=== PATIENT | female | born 1980 | race African-American/Black ===

== ENCOUNTER 2017-02-12 02:29 | Emergency (ER) ==
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
[2017-02-12] MEDS: ROCEPHIN IM STA (02:49)
[2017-02-12] MEDS: LIDOCAINE 1 % AMP 5 ML (SUTURES) IM STA (02:49)
[2017-02-12 02:52] VITALS: BP 145/95; TEMP 97.2; BMI 22.4
== END 2017-02-12 03:10 | disposition home or self-care (01) ==
LOC: ED 02:29
DX: Z20.2 Contact with and (suspected) exposure to infections with a predominantly sexual mode of transmission (principal)
CPT/HCPCS: 96372; 99282

== ENCOUNTER 2017-07-21 01:35 | Emergency (ER) ==
[2017-07-21 02:00] VITALS: BP 160/103; TEMP 98.1; BMI 23.1
[2017-07-21] MEDS: MORPHINE 2 MG/ML SYRINGE IVP STA (02:40)
[2017-07-21] MEDS: TORADOL IM STA (02:41)
[2017-07-21] MEDS: ZOFRAN 4 MG/2 ML IM STA (02:46)
[2017-07-21] MEDS: MORPHINE 2 MG/ML SYRINGE IM STA (02:47)
--- NOTE | 2017-07-21 03:16 | CT ---
Exam: CT of the abdomen and pelvis without contrast History: Pelvic pain and bleeding Technique: [address] of the abdomen and pelvis without intravascular contrast FINDINGS: The lung bases are clear. No significant liver abnormality. The adrenals, pancreas and spl een are unremarkable. The stomach and hiatus are unremarkable.The gallbladder appears normal. Kidneys and proximal collecting system are unremarkable. The appendix is not seen with confidence. Bowel loo ps demonstrate normal caliber. No inflamatory change seen in the mesentery or retroperitoneum. Vascul ar structures appear normal by noncontrast CT. Pelvic genitourinary structures appear normal. Pelvic bowel loops are unremarkable. No inflammatory c hange in the pelvic fat. No acute abnormality of the abdominal or pelvic skeleton. Impression: 1. No inflammatory process, bowel or urinary obstruction is seen. No acute findings of the abdomen or pelvis.
--- NOTE | 2017-07-21 03:49 | ED.PDOC ---
General ED Provider: Dr. JANAE REA-ER Chief Complaint: Vaginal Bleeding Stated Complaint: mahamed been bleeding Time Seen by Physician: 01:40 Mode of Arrival: Walk-In Information Source: Patient Exam Limitations: No limitations Primary Care Provider: JANAE REA Nursing and Triage Documentation Reviewed and Agree: Yes Reviewed sepsis parameters & appropriate labs ordered?: Yes System Inflammatory Response Syndrome: Not Applicable Sepsis Protocol: For patient's 13 years and over: Temp is 96.8 and below OR 101 and greater Pulse >90 BPM Resp >20/minute Acutely Altered Mental Status Are patient's symptoms suggestive of a new infection, such as: -Pneumonia -Skin, Soft Tissue -Endocarditis -UTI -Bone, Joint Infection -Implantable Device -Acute Abdominal Infection -Wound Infection -Meningitis -Blood Stream Catheter Infection -Unknown MEDICAL SAFETY DIRECTOR Complaint Exam - Vaginal Bleeding Complaint/Exam Onset/Duration: 2mos Symptoms Are: Still present Timing: Constant Initial Severity: Mild Current Severity: Moderate Character: Reports: Bright red Aggravating: Reports: None Alleviating: Reports: None Associated Signs and Symptoms: Reports: Cramping. Denies: Dizziness, Lightheadedness, Pale, UTI symptoms Patient Rh Status: Unknown Related Surgical History: Reports: None Abdominal Findings: Present: None Differential Diagnoses: DUB Review of Systems - Review Of Systems Constitutional: Reports: No symptoms Eyes: Reports: No symptoms Ears, Nose, Mouth, Throat: Reports: No symptoms Respiratory: Reports: No symptoms Cardiac: Reports: No symptoms GI: Reports: No symptoms : Reports: No symptoms Musculoskeletal: Reports: No symptoms Skin: Reports: No symptoms Neurological: Reports: No symptoms Endocrine: Reports: No symptoms Hematologic/Lymphatic: Reports: Blood clots All Other Systems: Reviewed and Negative Past Medical History - Past Medical History Previously Healthy: Yes Endocrine: Reports: None Cardiovascular: Reports: None Respiratory: Reports: None Hematological: Reports: None Gastrointestinal: Reports: None Genitourinary: Reports: None Neuro/Psych: Reports: None Musculoskeletal: Reports: None Cancer: Reports: None Last Menstrual Period: now - Surgical History General Surgical History: Reports: Unknown - Family History Family History: Reports: Unknown - Social History Smoking Status: Never smoker Hx Substance Use: No Alcohol Screening: None Lives: With family - Immunizations Tetanus Shot up to Date: Yes Physical Exam - Physical Exam Appearance: Well-appearing, No pain distress, Well-nourished Pain Distress: Mild Eyes: BRIAN ENT: Ears normal, Nose normal, Oropharynx normal Neck: Supple Respiratory: Airway patent, Breath sounds clear, Breath sounds equal, Respirations nonlabored Cardiovascular: RRR, Pulses normal, No rub, No murmur GI/: Soft, Nontender, No masses, Bowel sounds normal, No Organomegaly Musculoskeletal: Normal strength, ROM intact, No edema, No calf tenderness Skin: Warm, Dry, Normal color Neurological: Sensation intact, Motor intact, Reflexes intact, Cranial nerves intact, Alert, Oriented Psychiatric: Affect appropriate, Mood appropriate, Anxious Interpretation - Radiology Interpretation Radiology Interpretation By: Radiologist Radiology Results: Negative Exam Interpreted: CT Scan Critical Care Note - Critical Care Note Total Time (mins): 0 Course - Course Hematology/Chemistry: 07/21/17 02:05 07/21/17 02:05 Orders, Labs, Meds: Lab Review 07/21/17 07/21/17 07/21/17 02:00 02:05 02:05 WBC 10.49 H RBC 4.04 L Hgb 11.8 L Hct 34.5 L MCV 85.4 MCH 29.2 MCHC 34.2 RDW Coeff of Jennifer 13.3 Plt Count 466 H Immature Gran % (Auto) 0.3 Neut % (Auto) 64.5 Lymph % (Auto) 28.6 Baxter % (Auto) 5.3 Eos % (Auto) 1.0 Baso % (Auto) 0.3 Immature Gran # (Auto) 0.0 Neut # 6.8 Lymph # 3.0 Baxter # 0.6 Eos # 0.1 Baso # 0.0 Sodium 138 Potassium 3.6 Chloride 104 Carbon Dioxide 26 Anion Gap 11.6 BUN 7 Creatinine 0.75 Estimated GFR (MDRD) 106.00 BUN/Creatinine Ratio 9.33 Glucose 92 Calcium 9.5 Total Bilirubin 0.3 AST 19 ALT 22 Alkaline Phosphatase 67 Total Protein 7.7 Albumin 3.7 Globulin 4.0 Albumin/Globulin Ratio 0.93 Amylase 42 Lipase 10 Serum , Qual Urine Color Red Urine Clarity Clear Urine pH >=9.0 Ur Specific Hodges <=1.005 Urine Protein 3+ Urine Glucose (UA) Trace Urine Ketones 3+ Urine Blood 3+ Urine Nitrite Positive Urine Bilirubin 3+ Urine Urobilinogen >=8.0 Ur Leukocyte Esterase 3+ Urine Microscopic RBC Tntc Urine Microscopic WBC 10-20 Ur Squamous Epith Cells 2-5 07/21/17 02:05 WBC RBC Hgb Hct MCV MCH MCHC RDW Coeff of Jennifer Plt Count Immature Gran % (Auto) Neut % (Auto) Lymph % (Auto) Baxter % (Auto) Eos % (Auto) Baso % (Auto) Immature Gran # (Auto) Neut # Lymph # Baxter # Eos # Baso # Sodium Potassium Chloride Carbon Dioxide Anion Gap BUN Creatinine Estimated GFR (MDRD) BUN/Creatinine Ratio Glucose Calcium Total Bilirubin AST ALT Alkaline Phosphatase Total Protein Albumin Globulin Albumin/Globulin Ratio Amylase Lipase Serum , Qual Negative Urine Color Urine Clarity Urine pH Ur Specific Hodges Urine Protein Urine Glucose (UA) Urine Ketones Urine Blood Urine Nitrite Urine Bilirubin Urine Urobilinogen Ur Leukocyte Esterase Urine Microscopic RBC Urine Microscopic WBC Ur Squamous Epith Cells Orders Category Date Time Status AMYLASE Stat LAB 07/21/17 02:05 Completed CBC W/ AUTO DIFF Stat LAB 07/21/17 02:05 Completed COMPREHENSIVE METABOLIC PANEL Stat LAB 07/21/17 02:05 Completed LIPASE Stat LAB 07/21/17 02:05 Completed SERUM Stat LAB 07/21/17 02:05 Completed URINALYSIS C & S IF INDICATED Stat LAB 07/21/17 02:00 Completed URINE CULTURE Stat LAB 07/21/17 02:00 Received Ketorolac Tromethamine [Toradol] MEDS 07/21/17 01:53 Discontinued 60 mg IM ONCE STA Morphine Sulfate [Morphine 2 mg/ml Syringe] MEDS 07/21/17 02:41 Discontinued 2 mg IM ONCE STA Morphine Sulfate [Morphine 2 mg/ml Syringe] MEDS 07/21/17 01:53 Discontinued 2 mg IVP ONCE STA Ondansetron HCl/Pf [Zofran 4 mg/2 ml] MEDS 07/21/17 01:53 Discontinued 4 mg IM ONCE STA CT ABDOMEN/PELVIS WO CONTRAST Stat RADS 07/21/17 01:52 Completed Medications Discontinued Medications Generic Name Dose Route Start Last Admin Trade Name Freq PRN Reason Stop Dose Admin Ketorolac Tromethamine 60 mg 07/21/17 01:53 07/21/17 02:41 Toradol IM 07/21/17 01:54 60 mg ONCE STA Administration Morphine Sulfate 2 mg 07/21/17 01:53 07/21/17 02:40 Morphine 2 Mg/Ml Syringe IVP 07/21/17 01:54 Not Given ONCE STA Morphine Sulfate 2 mg 07/21/17 02:41 07/21/17 02:47 Morphine 2 Mg/Ml Syringe IM 07/21/17 02:42 2 mg ONCE STA Administration Ondansetron HCl 4 mg 07/21/17 01:53 07/21/17 02:46 Zofran 4 Mg/2 Ml IM 07/21/17 01:54 4 mg ONCE STA Administration Vital Signs: Temp Pulse Resp BP Pulse Ox 07/21/17 01:35 98.1 F 115 H 20 160/103 H 97 Departure - Departure Time of Disposition: 03:49 Disposition: HOME SELF-CARE Discharge Problem: Bleeding from vagina, Anemia UTI (urinary tract infection) Qualifiers: Urinary tract infection type: site unspecified Hematuria presence: without hematuria Qualified Code(s): N39.0 - Urinary tract infection, site not specified Instructions: Dysfunctional Uterine Bleeding (ED) Condition: Good Pt referred to PMD for follow-up: Yes IPMP verified?: No Additional Instructions: cipro 500mg bid x 7days--fe so4 325 bid #60--toradol 10mg qid prn cramps#16---f/ u with plant controls specialist next week Allergies/Adverse Reactions: Allergies No Known Allergies Allergy (Verified 07/21/17 01:45) Home Medications: Ambulatory Orders 1 [No Reported Medications] 12/07/13 Disposition Discussed With: Patient
== END 2017-07-21 04:00 | disposition home or self-care (01) ==
LOC: ED 01:35
DX: N39.0 Urinary tract infection, site not specified (principal); N93.8 Other specified abnormal uterine and vaginal bleeding; D64.9 Anemia, unspecified
CPT/HCPCS: 36415; 80053; 81001; 82150; 83690; 84703; 85025; 87086; 87186; 96372; 99283

== ENCOUNTER 2017-08-03 02:20 | Emergency (ER) ==
[2017-08-03] MEDS ORDERED: SODIUM CHLORIDE 1,000 ML IV STA (02:27)
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
[2017-08-03 02:34] VITALS: BP 168/116; TEMP 98.9; BMI 23.1
[2017-08-03] MEDS ORDERED: LIDOCAINE 2% 20 ML MDV INJ STA (02:40)
[2017-08-03] MEDS ORDERED: LIDOCAINE 2%-EPI 1:100,000 20 ML MDV INJ STA (02:42)
[2017-08-03] MEDS ORDERED: ZOFRAN 4 MG/2 ML IVP STA (02:49)
[2017-08-03] MEDS ORDERED: DEMEROL 25 MG/ML VIAL IVP STA (02:49)
[2017-08-03] MEDS ORDERED: ZOSYN 3.375 GM 3.375 GM in SODIUM CHLORIDE 50 ML IV STA (03:03)
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
== END 2017-08-03 03:50 | disposition short-term general hospital (02) ==
LOC: ED 02:20
DX: S71.111A Laceration without foreign body, right thigh, initial encounter (principal); S31.119A Laceration without foreign body of abdominal wall, unspecified quadrant without penetration into peritoneal cavity, initial encounter; W45.8XXA Other foreign body or object entering through skin, initial encounter
CPT/HCPCS: 36415; 80053; 84703; 85025; 85610; 96360; 96361; 96375; 99285

== ENCOUNTER 2017-08-03 03:59 | Outpatient (CLI) ==
[2017-08-03 02:34] VITALS: BMI 23.1
== END 2017-08-03 04:00 | disposition short-term general hospital (02) ==
LOC: AMBL 03:59
PROVIDERS: ATTEND Emergency Medicine
DX: S31.114A Laceration without foreign body of abdominal wall, left lower quadrant without penetration into peritoneal cavity, initial encounter (principal); S71.111A Laceration without foreign body, right thigh, initial encounter; W45.8XXA Other foreign body or object entering through skin, initial encounter; R00.0 Tachycardia, unspecified

== ENCOUNTER 2018-10-20 03:05 | Observation (INO) ==
[2018-10-20] MEDS ORDERED: LIDOCAINE HCL 1% SDV IM STA (03:49)
[2018-10-20] MEDS ORDERED: ROCEPHIN IM STA (03:49)
[2018-10-20] MEDS ORDERED: PHENERGAN 25 MG/ML VIAL IM STA (03:50)
[2018-10-20] MEDS ORDERED: MORPHINE 2 MG/ML SYRINGE IVP STA (03:50)
[2018-10-20 04:36] LABS: URINE PREGNANCY TEST NEGATIVE (NEGATIVE)
[2018-10-20] MEDS ORDERED: SODIUM CHLORIDE 1,000 ML IV STA ×2 (04:41→06:33)
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
[2018-10-20] MEDS ORDERED: DILAUDID 1 MG/ML SYRINGE IVP STA (05:40)
--- NOTE | 2018-10-20 05:56 | ED.PDOC ---
General ED Provider: Dr. JANAE REA-ER Chief Complaint: Non-specific Complaint Stated Complaint: i hurt Time Seen by Physician: 03:10 Mode of Arrival: Walk-In Information Source: Patient Exam Limitations: No limitations Primary Care Provider: JANAE REA Nursing and Triage Documentation Reviewed and Agree: Yes Does patient meet sepsis criteria?: No System Inflammatory Response Syndrome: Not Applicable Sepsis Protocol: For patient's 13 years and over: Temp is 96.8 and below OR 101 and greater Pulse >90 BPM Resp >20/minute Acutely Altered Mental Status Are patient's symptoms suggestive of a new infection, such as: -Pneumonia -Skin, Soft Tissue -Endocarditis -UTI -Bone, Joint Infection -Implantable Device -Acute Abdominal Infection -Wound Infection -Meningitis -Blood Stream Catheter Infection -Unknown Complaint Exam - Complaint/Exam Patient Complains of: Reports: Vaginal discharge, Pain Symptoms Are: Still present Initial Severity: Mild Current Severity: Moderate Location of Pain: Reports: Groin Character: Reports: Constant pressure, Dull Aggravating: Reports: [place] Alleviating: Reports: None Ovarian Torsion Risk Factors: Reports: Reproductive age Surgical Obstruction Risk Factors: Reports: None RH Status: Unknown Related Surgical History: Reports: None Abdominal Findings: Present: None Cervical Exam: Present: Discharge, Tenderness Uterine Exam: Size WNL Differential Diagnoses: Cervicitis Review of Systems - Review Of Systems Constitutional: Reports: No symptoms Eyes: Reports: No symptoms Ears, Nose, Mouth, Throat: Reports: No symptoms Respiratory: Reports: No symptoms Cardiac: Reports: No symptoms GI: Reports: No symptoms : Reports: No symptoms Musculoskeletal: Reports: No symptoms Skin: Reports: No symptoms Neurological: Reports: No symptoms Endocrine: Reports: No symptoms Hematologic/Lymphatic: Reports: No symptoms All Other Systems: Reviewed and Negative Past Medical History - Past Medical History Previously Healthy: Yes Endocrine: Reports: None Cardiovascular: Reports: None Respiratory: Reports: None Hematological: Reports: None Gastrointestinal: Reports: None Genitourinary: Reports: None Neuro/Psych: Reports: None Musculoskeletal: Reports: None Cancer: Reports: None Last Menstrual Period: 1 week ago - Surgical History General Surgical History: Reports: Unknown - Family History Family History: Reports: Unknown - Social History Smoking Status: Current every day smoker, Light tobacco smoker Hx Substance Use: Yes (marijuana) Alcohol Screening: None - Immunizations Tetanus Shot up to Date: No (unsure) Physical Exam - Physical Exam Appearance: Well-appearing, No pain distress, Well-nourished Pain Distress: Moderate Eyes: BRIAN, EOMI, Conjunctiva clear ENT: Ears normal, Nose normal, Oropharynx normal Neck: Supple Respiratory: Airway patent, Breath sounds clear, Breath sounds equal, Respirations nonlabored Cardiovascular: RRR GI/: Soft, Nontender, No masses, Bowel sounds normal, No Organomegaly Musculoskeletal: Normal strength, ROM intact, No edema, No calf tenderness Skin: Warm, Dry, Normal color Neurological: Sensation intact, Motor intact, Reflexes intact, Cranial nerves intact, Alert, Oriented Psychiatric: Affect appropriate, Mood appropriate Interpretation - Radiology Interpretation Radiology Interpretation By: Radiologist Radiology Results: Negative Exam Interpreted: CT Scan Critical Care Note - Critical Care Note Total Time (mins): 0 Course - Course Hematology/Chemistry: 10/20/18 04:00 10/20/18 04:00 Orders, Labs, Meds: Lab Review 10/20/18 10/20/18 10/20/18 03:55 04:00 04:00 WBC 9.36 RBC 3.33 L Hgb 5.8 L* Hct 21.3 L MCV 64.0 L MCH 17.4 L MCHC 27.2 L RDW Coeff of Jennifer 17.6 H Plt Count 738 H Immature Gran % (Auto) 0.4 Neut % (Auto) 77.4 Lymph % (Auto) 14.7 [place] % (Auto) 5.8 Eos % (Auto) 1.5 Baso % (Auto) 0.2 Immature Gran # (Auto) 0.0 Neut # (Auto) 7.2 H Lymph # (Auto) 1.4 [place] # (Auto) 0.5 Eos # (Auto) 0.1 Baso # (Auto) 0.0 Hypochromasia 2+ Anisocytosis 2+ Microcytosis 1+ Target Cells 1+ Ovalocytes 1+ Stomatocytes 1+ ESR 65 H Sodium 138.0 Potassium 4.07 Chloride 105.1 Carbon Dioxide 25.4 Anion Gap 11.57 BUN 11.0 Creatinine 0.58 L Estimated GFR (MDRD) 142.00 BUN/Creatinine Ratio 18.96 Glucose 101.0 Calcium 9.06 Iron Ferritin Total Bilirubin 0.19 L AST 26.3 ALT 12.1 Alkaline Phosphatase 79.0 Total Protein 7.50 Albumin 4.23 Globulin 3.27 Albumin/Globulin Ratio 1.29 Vitamin B12 Urine Color Urine Clarity Urine pH Ur Specific [place] Urine Protein Urine Glucose (UA) Urine Ketones Urine Blood Urine Nitrite Urine Bilirubin Urine Urobilinogen Ur Leukocyte Esterase Urine Microscopic RBC Urine Microscopic WBC Ur Squamous Epith Cells Ur Transition Epith Cell Urine Bacteria Urine Mucus Urine Test Clue Cells (Wet Prep) None seen Trichomonas (Wet Prep) None seen Vaginal WBC Few [place] Preparation No fungal elements 10/20/18 10/20/18 10/20/18 04:00 04:00 04:10 WBC RBC Hgb Hct MCV MCH MCHC RDW Coeff of Jennifer Plt Count Immature Gran % (Auto) Neut % (Auto) Lymph % (Auto) [place] % (Auto) Eos % (Auto) Baso % (Auto) Immature Gran # (Auto) Neut # (Auto) Lymph # (Auto) [place] # (Auto) Eos # (Auto) Baso # (Auto) Hypochromasia Anisocytosis Microcytosis Target Cells Ovalocytes Stomatocytes ESR Sodium Potassium Chloride Carbon Dioxide Anion Gap BUN Creatinine Estimated GFR (MDRD) BUN/Creatinine Ratio Glucose Calcium Iron 20.9 L Ferritin 3.18 L Total Bilirubin AST ALT Alkaline Phosphatase Total Protein Albumin Globulin Albumin/Globulin Ratio Vitamin B12 465 Urine Color Yellow Urine Clarity Cloudy Urine pH 7.5 Ur Specific [place] 1.020 Urine Protein Trace Urine Glucose (UA) Negative Urine Ketones Negative Urine Blood Negative Urine Nitrite Positive Urine Bilirubin Negative Urine Urobilinogen 4.0 Ur Leukocyte Esterase 2+ Urine Microscopic RBC 0-2 Urine Microscopic WBC 10-20 Ur Squamous Epith Cells 10-20 Ur Transition Epith Cell 0-2 Urine Bacteria 4+ Urine Mucus Trace Urine Test Clue Cells (Wet Prep) Trichomonas (Wet Prep) Vaginal WBC [place] Preparation 10/20/18 04:30 WBC RBC Hgb Hct MCV MCH MCHC RDW Coeff of Jennifer Plt Count Immature Gran % (Auto) Neut % (Auto) Lymph % (Auto) [place] % (Auto) Eos % (Auto) Baso % (Auto) Immature Gran # (Auto) Neut # (Auto) Lymph # (Auto) [place] # (Auto) Eos # (Auto) Baso # (Auto) Hypochromasia Anisocytosis Microcytosis Target Cells Ovalocytes Stomatocytes ESR Sodium Potassium Chloride Carbon Dioxide Anion Gap BUN Creatinine Estimated GFR (MDRD) BUN/Creatinine Ratio Glucose Calcium Iron Ferritin Total Bilirubin AST ALT Alkaline Phosphatase Total Protein Albumin Globulin Albumin/Globulin Ratio Vitamin B12 Urine Color Urine Clarity Urine pH Ur Specific [place] Urine Protein Urine Glucose (UA) Urine Ketones Urine Blood Urine Nitrite Urine Bilirubin Urine Urobilinogen Ur Leukocyte Esterase Urine Microscopic RBC Urine Microscopic WBC Ur Squamous Epith Cells Ur Transition Epith Cell Urine Bacteria Urine Mucus Urine Test Negative Clue Cells (Wet Prep) Trichomonas (Wet Prep) Vaginal WBC [place] Preparation Orders Category Date Time Status ORDER H&H 1HR POST TRANSFUSION ONCE CARE 10/20/18 04:41 Active PRBC LEUKOREDUCED ONCE CARE 10/20/18 04:41 Active ED IV/MEDIPORT/POWERPORT .ONCE EMERGENCY 10/20/18 04:41 Active CBC W/ AUTO DIFF Stat LAB 10/20/18 04:00 Completed CHLAMYDIA/GC AMPLIFICATION Stat LAB 10/20/18 03:55 Received COMPREHENSIVE METABOLIC PANEL Stat LAB 10/20/18 04:00 Completed ESR Stat LAB 10/20/18 04:00 Completed FERRITIN Stat LAB 10/20/18 04:00 Completed HIV 4TH GENERATION Stat LAB 10/20/18 04:00 Received IRON Stat LAB 10/20/18 04:00 Completed [place] PREP Stat LAB 10/20/18 03:55 Completed PACKED CELLS Stat LAB 10/20/18 05:10 Received RBC MORPHOLOGY Stat LAB 10/20/18 04:00 Completed RPR [RAPID PLASMA REAGIN] Stat LAB 10/20/18 04:00 Received TYPE AND SCREEN Stat LAB 10/20/18 04:43 Ordered TYPE AND SCREEN Stat LAB 10/20/18 05:10 Received URINALYSIS C & S IF INDICATED Stat LAB 10/20/18 04:10 Completed URINE CULTURE Stat LAB 10/20/18 04:10 Received URINE Stat LAB 10/20/18 04:30 Completed VITAMIN B12 Stat LAB 10/20/18 04:00 Completed WET PREP Stat LAB 10/20/18 03:55 Completed 0.9 % Sodium Chloride [Saline Flush] MEDS 10/20/18 04:41 Ordered 1 syr IVF PRN PRN Ceftriaxone Sodium [Rocephin] MEDS 10/20/18 03:49 Discontinued 250 mg IM ONCE STA Hydromorphone HCl [Dilaudid 1 mg/ml Syringe] MEDS 10/20/18 05:40 Discontinued 1 mg IVP ONCE STA Lidocaine HCl/Pf [Lidocaine HCl 1% Sdv] MEDS 10/20/18 03:49 Discontinued 0.9 ml IM ONCE STA Morphine Sulfate [Morphine 2 mg/ml Syringe] MEDS 10/20/18 03:50 Discontinued 4 mg IVP ONCE STA Promethazine HCl [Phenergan 25 mg/ml Vial] MEDS 10/20/18 03:50 Discontinued 25 mg IM ONCE STA Sodium Chloride 0.9% [Sodium Chloride] 1,000 ml MEDS 10/20/18 04:41 Active IV 100 mls/hr CT ABDOMEN/PELVIS WO CONTRAST Stat RADS 10/20/18 03:49 Completed Medications Generic Name Dose Route Start Last Admin Trade Name Freq PRN Reason Stop Dose Admin Sodium Chloride 1,000 mls @ 100 mls/hr 10/20/18 04:41 10/20/18 05:08 Sodium Chloride IV 10/20/18 14:40 100 mls/hr .Q10H STA Administration Sodium Chloride 1 syr 10/20/18 04:41 10/20/18 05:08 Saline Flush IVF 1 syr PRN PRN Administration To flush IV Discontinued Medications Generic Name Dose Route Start Last Admin Trade Name Freq PRN Reason Stop Dose Admin Ceftriaxone Sodium 250 mg 10/20/18 03:49 10/20/18 04:33 Rocephin IM 10/20/18 03:50 250 mg ONCE STA Administration Hydromorphone HCl 1 mg 10/20/18 05:40 10/20/18 05:44 Dilaudid 1 Mg/Ml Syringe IVP 10/20/18 05:41 1 mg ONCE STA Administration Lidocaine HCl 0.9 ml 10/20/18 03:49 10/20/18 04:34 Lidocaine Hcl 1% Sdv IM 10/20/18 03:50 0.9 ml ONCE STA Administration Morphine Sulfate 4 mg 10/20/18 03:50 10/20/18 04:35 Morphine 2 Mg/Ml Syringe IVP 10/20/18 03:51 4 mg ONCE STA Administration Promethazine HCl 25 mg 10/20/18 03:50 10/20/18 04:37 Phenergan 25 Mg/Ml Vial IM 10/20/18 03:51 25 mg ONCE STA Administration Vital Signs: Temp Pulse Resp BP Pulse Ox 10/20/18 03:08 97.9 F 111 H 20 143/84 H 97 Departure - Departure Time of Disposition: 05:56 Disposition: PLACED OBSERVATION Discharge Problem: Pelvic inflammatory disease (PID) Profound anemia Qualifiers: Anemia type: iron deficiency Iron deficiency anemia type: chronic blood loss Qualified Code(s): D50.0 - Iron deficiency anemia secondary to blood loss ( chronic) Constipation Qualifiers: Constipation type: unspecified constipation type Qualified Code(s): K59.00 - Constipation, unspecified Instructions: Iron Deficiency Anemia (ED) Condition: Fair Pt referred to PMD for follow-up: Yes IPMP verified?: No Allergies/Adverse Reactions: Allergies No Known Allergies Allergy (Verified 10/20/18 03:20) Home Medications: Ambulatory Orders 1 [No Reported Medications] 12/07/13 Disposition Discussed With: Patient
[2018-10-20] MEDS ORDERED: ROCEPHIN 1 GM in SODIUM CHLORIDE 50 ML IV STA (05:59)
[2018-10-20] MEDS ORDERED: ZOFRAN 4 MG/2 ML IVP PRN (06:02)
[2018-10-20] MEDS ORDERED: VENOFER 300 MG in SODIUM CHLORIDE 250 ML IV ONE (06:04)
[2018-10-20 06:44] VITALS: BMI 24.4
[2018-10-20] MEDS ORDERED: MYLANTA SUSP PO PRN (07:24)
--- NOTE | 2018-10-20 08:46 | ED.PDOC ---
Procedures - IV/Art Line Insertion Location: Rt forearm Type of Line: Peripheral IV Invasive Line/IV Catheter Gauge: 20 Number of Attempts: 1 (.1ml ID 1% MPF lidocaine) Blood Return Positive: Yes Invasive Line/IV Flushes Without Difficulty: Yes Conscious Sedation - Pre-op Assessment Weight: 180 lb 4.8 oz Surgical History: X 2, CYST X 2, - Medical History Past Medical History: Anemia, Kidney Stones, Anxiety Other History: None - Physical Exam Heart Rate/Rhythm: Tachycardia
[2018-10-20] MEDS: COLACE PO SCH ×2 (09:07→20:39)
[2018-10-20] MEDS: MILK OF MAGNESIA PO SCH (09:07)
[2018-10-20] MEDS: MIRALAX PO SCH ×2 (09:08→20:38)
[2018-10-20] MEDS: DOXY-100 100 MG in SODIUM CHLORIDE 100 ML IV SCH ×2 (10:00→20:40)
[2018-10-20] MEDS: DILAUDID 0.5 MG/0.5 ML SYRINGE IVP PRN ×2 (10:36→20:40)
[2018-10-20] MEDS ORDERED: GI COCKTAIL PO PRN (11:45)
[2018-10-20] MEDS: PROTONIX IV IVP SCH ×2 (11:52→20:39)
[2018-10-20] MEDS: PEPCID IVP SCH ×2 (11:53→20:39)
[2018-10-21] MEDS: DILAUDID 0.5 MG/0.5 ML SYRINGE IVP PRN ×3 (03:17→15:53)
[2018-10-21] MEDS: DOXY-100 100 MG in SODIUM CHLORIDE 100 ML IV SCH (08:11)
[2018-10-21] MEDS: MIRALAX PO SCH (08:12)
[2018-10-21] MEDS: PROTONIX IV IVP SCH (08:12)
[2018-10-21] MEDS: PEPCID IVP SCH (08:12)
[2018-10-21] MEDS: COLACE PO SCH (08:24)
[2018-10-21] MEDS: MILK OF MAGNESIA PO SCH (08:25)
[2018-10-21 14:10] VITALS: BP 122/72; TEMP 99.1
--- NOTE | 2019-01-01 13:48 | SSS ---
CHIEF COMPLAINT: "I am hurting." DISCUSSION: 38-year-old lady that presented to the Emergency Department with diffuse lower abdominal and pelvic pain that has been going on for several days. She has also had thick vaginal discharge associated with the pain as well as low grade fever. In the emergency department, she was found to have cervical motion tenderness as well as low grade fever. CT scan of the abdomen and pelvis did not reveal any evidence of obstruction or abscess. She was noted to have a large amount of stool in the colon. Her swab for gonorrhea was noted to be positive. Her urinalysis revealed 4+ bacteria. At this point she was admitted to my services for treatment of PID as well as her UTI. PAST MEDICAL HISTORY: MEDICATIONS: None ALLERGIES: NKDA PAST MEDICAL HISTORY: Iron deficiency - she does admit to having heavy periods and under the care of a product development coordinator in [place], [place]. PAST SURGICAL HISTORY: Denies. SOCIAL HISTORY: She is a one pack per day smoker. She does admit to using marijuana. Denies any alcohol. FAMILY HISTORY: Reviewed and thought not to be pertinent to discussion. REVIEW OF SYSTEMS: Denies headaches, visual changes, chest pain, shortness of breath. She has had lower abdominal pain and pelvic pain with low grade fever. Denies any vomiting with this. PHYSICAL EXAMINATION: VITAL SIGNS: Temperature 97.9, pulse 112, respirations 20 and blood pressure 143 /84. HEENT: Pupils are round. NECK: Supple. CHEST: Clear. CARDIOVASCULAR: Regular rate and rhythm. ABDOMEN: Soft, nontender, nonfocal. PELVIC: Reveals evidence of cervical motion tenderness. EXTREMITIES: Distal extremities without cyanosis or edema. CLINICAL COURSE: The patient was admitted. She did very well with IV antibiotics. Her pain improved. Her hematocrit improved from 25 to 27. Again, her urine culture was noted to be positive for E. coli and cervical cultures noted to be positive for gonorrhea. Her pelvic pain improved and at this point we felt the patient was stable for discharge. She will be discharged to home with antibiotics. She is going to followup with her product development coordinator concerning the cultures as well as her ongoing anemia and heavy periods which we feel is a source of her iron deficiency anemia. ASSESSMENT: 1. Iron deficiency anemia. 2. UTI. 3. PID. PLAN: 1. Admission. 2. Pain control. 3. Antibiotics. 4. Please see orders. MTDD
== END 2018-10-21 18:10 | disposition home or self-care (01) ==
LOC: ED 03:05 → MEDSURG B 06:08
PROVIDERS: ADMIT Family Medicine; ATTEND Family Medicine
DX: N89.8 Other specified noninflammatory disorders of vagina (principal); A54.9 Gonococcal infection, unspecified; N39.0 Urinary tract infection, site not specified; Z72.0 Tobacco use; N73.9 Female pelvic inflammatory disease, unspecified; D50.0 Iron deficiency anemia secondary to blood loss (chronic); K59.00 Constipation, unspecified; R50.9 Fever, unspecified; B96.20 Unspecified Escherichia coli [E. coli] as the cause of diseases classified elsewhere
CPT/HCPCS: 36415; 36430; 80053; 81001; 81025; 82607; 82728; 83540; 85008; 85014; 85018; 85025; 85651; 86592; 86850; 86900; 86922; 87070; 87086; 87186; 87210; 87389; 87800; 96361; 96365; 96367; 96372; 96374; 96375; 96376; 99285